=== PATIENT | male | born 1970 | race Caucasian/White ===

== ENCOUNTER 2017-04-27 20:25 | Emergency (ER) | payer OTHER ==
[~2017-04-27] VITALS: Ht 182.9 cm; Wt 76.0 kg
[~2017-04-27 20:25] MED LIST: BACTDS PO; CLIN-73 PO; METF1000 PO
[2017-04-27 20:28] VITALS: Ht 182.9 cm; Wt 76.0 kg
[2017-04-27] MEDS ORDERED: CLINDAMYCIN 300 MG INJ IV ONE (22:30)
[2017-04-27] MEDS ORDERED: CLINDAMYCIN 600 MG/D5W (PMX) 50 ML IVPB ONE (22:33)
[2017-04-28] MEDS ORDERED: CLIN-73 PO (00:28)
[2017-04-28] MEDS ORDERED: CLOT30CR24 TOP (00:29)
[2017-04-28 00:56] VITALS: BP 120/70; PULSE 86; RESP 16; TEMP 97.4
--- NOTE | 2017-04-28 01:46 | ERD ---
ER Documentation Chief Complaint Date/Time DATE: 04/28/17 TIME: 01:42 Chief Complaint rash in private area x1 month. has appointment this coming saturday HPI This 47-year-old male presents emergency department today complaining of a rash in his genital area for the past 2-3 weeks. Patient states he has a doctor's appointment this coming Saturday. States he has diabetes. States he has not tried any medication. Denies any fevers or chills. 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 ROS All systems reviewed and are negative except as per history of present illness. Medications Home Meds Active Scripts Clotrimazole* (Clotrimazole* AF) 1% - 30 Gm Cream.gm., 1 APPLIC TOP BID for 7 Days, #1 TUB Prov:MARIO GALVAN PA-C 04/28/17 Clindamycin Hcl* (Clindamycin Hcl*) 300 Mg Capsule, 300 MG PO QID for 7 Days, CAP Prov:MARIO GALVAN PA-C 04/28/17 Clindamycin Hcl* (Clindamycin Hcl*) 300 Mg Capsule, 300 MG PO TID for 7 Days, CAP Prov:ZOYA MADERA 12/21/15 Sulfamethoxazole-Trimethoprim* (Bactrim* DS) 800-160 Mg Tab, 1 TAB PO BID for 7 Days, TAB Prov:ZOYA MADERA 12/21/15 Reported Medications Metformin Hcl* (Metformin Hcl*) 1,000 Mg Tablet, 1000 MG PO BID 12/20/15 Allergies Allergies: Coded Allergies: No Known Allergy (Unverified , 04/27/17) PMhx/Soc Medical and Surgical Hx: pt denies Surgical Hx History of Surgery: No Anesthesia Reaction: No Hx Neurological Disorder: No Hx Respiratory Disorders: No Hx Cardiac Disorders: No Hx Psychiatric Problems: No Hx Miscellaneous Medical Probl: Yes (DM) Hx Alcohol Use: Yes (1-3 PER DAY) Hx Substance Use: No Hx Tobacco Use: No Smoking Status: Never smoker Physical Exam Vitals Vital Signs Date Time Temp Pulse Resp B/P Pulse Ox O2 Delivery O2 Flow Rate FiO2 04/28/17 00:56 97.4 86 16 120/70 100 Room Air 04/27/17 20:28 99.3 18 18 133/88 98 Physical Exam Const: NAD Head: Atraumatic Eyes: Normal Conjunctiva ENT: Normal External Ears, Nose and Mouth. Neck: Full range of motion..~ No meningismus. Resp: Clear to auscultation bilaterally Cardio: Regular rate and rhythm, no murmurs Abd: Soft, non tender, non distended. Normal bowel sounds : Uncircumcised penis with evidence of discharge around glans. No drainage from urethra. Skin: Diffuse area of discharge and evidence of fungus in genital area, scrotum, penis. Back: No midline or flank tenderness Ext: No cyanosis, or edema Neur: Awake and alert Psych: Normal Mood and Affect Results 24 hrs Current Medications Medications (Trade) Dose Ordered Sig/Kailash Route PRN Reason Start Time Stop Time Status Last Admin Dose Admin Clindamycin Phosphate 600 mg 600 mg ONCE ONCE IV 04/27/17 22:30 04/27/17 22:31 Cancel Clindamycin HCl/ Dextrose (Cleocin 600 Mg/ D5W (Pmx)) 50 ml @ 50 mls/hr ONCE ONCE IVPB 04/27/17 22:33 04/27/17 23:32 DC 04/27/17 22:43 Procedures/MDM This 47-year-old male presents emergency department today complaining of a diffuse rash in his genital area for the past 2 weeks. Physical exam patient had evidence of diffuse rash, cellulitis, and discharge from the penile area. His symptoms at this time is consistent with fungal infection and likely balanitis that has also spread.Given the severity of the patient's rash I did give the patient IV clindamycin here in the emergency department. He is afebrile and otherwise well-appearing. Low suspicion for sepsis, deep space tracking infection, meningitis, sepsis. I did send the urine for gonorrhea and chlamydia given the area of discharge around the penis. Patient denies any testicular pain of low suspicion for testicular torsion, epididymitis, orchitis. Patient is given a prescription for clindamycin and Chlortrimazole. He was instructed to return in 48 hours for a wound check and instructed to keep the area clean and dry. Departure Diagnosis: Primary Impression: Rash and other nonspecific skin eruption Condition: Fair Patient Instructions: Balanitis, Fungal Infection, Skin [General] Referrals: MELI WILLS MD (PCP) Additional Instructions: Destinee bernabe doctor MAANA y josiah brandy GERMAN PARA DENTRO DE 1-2 OTERO.Dgale a la secretaria que nosotros le instruimos hacer esta german.Avise o llame si stevens condicin se empeora antes de la german. Regresa aqui si peor o no mejor. Wound check in 48 hours Take antibiotics as prescribed use cream as prescribed for fungus Keep area clean and dry MARIO GALVAN PA-C Apr 28, 2017 01:46
== END 2017-04-28 00:57 | disposition home or self-care (01) ==
LOC: FTE 20:25
DX: R21 Rash and other nonspecific skin eruption (principal); E11.9 Type 2 diabetes mellitus without complications; Z79.84 Long term (current) use of oral hypoglycemic drugs
CPT/HCPCS: 87591; 96374; Z7502; Z7610

== ENCOUNTER 2017-11-19 05:51 | Day surgery (SDC) | END 2017-11-19 10:35 | disposition home or self-care (01) ==

== ENCOUNTER → 2018-12-24 | Emergency (ER) | payer OTHER ==
[~2018-12-24] VITALS: Wt 74.3 kg
[~2018-12-24] MED LIST changes: +ASPI-817 PO; -BACTDS PO; +CEPH-443 PO; -CLIN-73 PO; +DIABETES PILL PO; +GLIPIZIDE PO; -METF1000 PO; +METF100010 PO; +SULF1TAB31 PO
[2018-12-24 14:27] VITALS: BP 110/64; PULSE 91; RESP 22; Wt 74.3 kg
--- NOTE | 2018-12-24 14:52 | ERD ---
ER Documentation Chief Complaint Chief Complaint R foot diabetic wound worsening x3d; serous discharge. weak. HPI 48-year-old male, with history of diabetes and diabetic foot ulcer, presents to the emergency department, complaining of worsening of the symptoms for 3 days. The patient denies fever, no chills. ROS All systems reviewed and are negative except as per history of present illness. Medications Home Meds Active Scripts Sulfamethoxazole/Trimethoprim* (Bactrim Ds* Tablet) 1 Each Tablet, 1 TAB PO BID, #28 TAB Prov:DOC SHEN MD 12/24/18 Cephalexin* (Keflex*) 500 Mg Capsule, 500 MG PO BID for 14 Days, #28 CAP Prov:DOC SHEN MD 12/24/18 Reported Medications [Diabetes Pill] No Conflict Check, PO 11/19/17 [Glipizide] No Conflict Check, PO 11/19/17 Aspirin* (Aspirin* EC) 81 Mg Tablet.dr, 81 MG PO DAILY, TAB 11/19/17 Metformin Hcl* (Metformin Hcl*) 1,000 Mg Tablet, 1000 MG PO BID 12/20/15 Allergies Allergies: Coded Allergies: No Known Allergy (Unverified , 04/27/17) PMhx/Soc History of Surgery: No Anesthesia Reaction: No Hx Neurological Disorder: No Hx Respiratory Disorders: No Hx Cardiac Disorders: No Hx Psychiatric Problems: No Hx Miscellaneous Medical Probl: Yes (Diabetes) Hx Alcohol Use: No Hx Substance Use: No Hx Tobacco Use: No FmHx Family History: diabetes Physical Exam Vitals Vital Signs Date Temp Pulse Resp B/P (MAP) Pulse Ox O2 O2 Flow FiO2 Time Delivery Rate 12/24/18 97.5 91 22 110/64 99 14:27 (79) Physical Exam Const: No acute distress Head: Atraumatic Eyes: Normal Conjunctiva ENT: Normal External Ears, Nose and Mouth. Neck: Full range of motion. No meningismus. Resp: Clear to auscultation bilaterally Cardio: Regular rate and rhythm, no murmurs Abd: Soft, non tender, non distended. Normal bowel sounds Skin: No petechiae or rashes Back: No midline or flank tenderness Ext: Right foot with mid plantar blister, with active purulent discharge. No peripheral erythema, warmth or fluctuance. Neur: Awake and alert Psych: Normal Mood and Affect Procedures/MDM Vital signs stable, differential diagnosis include but not limited to: Osteomyelitis, superficial thrombosis, cellulitis, erysipelas, shingles, absc ess. Low suspicion for acute systemic infectious process. Physical examination and clinical presentation consistent most likely with diabetic foot ulcer. During the ED course the patient remained stable, no new complaints. Results and clinical impression discussed with the patient who agrees with management. The patient is stable to be treated outpatient and will be discharged home with a Rx for antibiotics; some side effects of prescribed medications (headache, rash, nausea, vomiting, diarrhea, drowsiness, habituation, bleeding, hypertension, interactions with other medications) were reviewed. The patient was instructed to follow up with the primary care provider in the next 48h. If symptoms persist, worsen or new symptoms develop, then patient should return to the ED immediately. Instructions explained and given directly by me to the patient and relatives with acknowledgment and demonstrated understanding. Disclaimer: Inadvertent spelling and grammatical errors are likely due to EHR/dictation software use and do not reflect on the overall quality of patient care. Also, please note that the electronic time recorded on this note does not necessarily reflect the actual time of the patient encounter. Departure Diagnosis: Primary Impression: Diabetic foot ulcer Condition: Stable Additional Instructions: Muchas pawel por [facility] para stevens servicio. Esperamos que en stevens visita a la bill de emergencia stevens problema medico haya sido solucionado y que se sienta mucho mejor. Para estar seguros que stevens mejoria sigue en proceso, le pedimos el favor de hacer brandy jerry de seguimiento medico con stevens doctor primario en los proximos 2-4 srinivasan. Lleve con usted estos documentos y las medicinas recetadas. Si mitch sintomas empeoran, NO SE ESPERE, por favor regrese a bill de emergencia INMEDIATAMENTE. En jose eduardo que usted no tenga un mdico de atencin primaria: Llame al mdico o clnica comunitaria de referencia que aparece abajo ginger las horas de consultorio para hacer brandy jerry para que le vean. CLINICAS: [facility] [phone] [facility] [id number] [facility] [phone] [facility] [phone] [facility] [phone] [facility] [phone] DOC PATEL MD December 24, 2018 14:52
== END | disposition home or self-care (01) ==
LOC: FTE 12:34
DX: E11.621 Type 2 diabetes mellitus with foot ulcer (principal); L97.519 Non-pressure chronic ulcer of other part of right foot with unspecified severity; Z79.82 Long term (current) use of aspirin; Z79.84 Long term (current) use of oral hypoglycemic drugs
CPT/HCPCS: 99283